=== PATIENT | female | born 1955 | race Asian ===

== ENCOUNTER 2019-02-15 12:33 | Emergency (ER) | payer MEDICARE, BC ==
[~2019-02-15] VITALS: Ht 162.6 cm; Wt 74.8 kg
[2019-02-15 14:53] VITALS: BP 137/96
--- NOTE | 2019-02-15 14:54 | NUR ---
For discharge- [facility] given verbalized understanding Home ambulatory in stable condition No obvious distress
== END 2019-02-15 15:00 | disposition home or self-care (01) ==
LOC: ER 12:41
DX: D17.24 Benign lipomatous neoplasm of skin and subcutaneous tissue of left leg (principal); M25.562 Pain in left knee; Z88.6 Allergy status to analgesic agent; Z88.5 Allergy status to narcotic agent
CPT/HCPCS: 93971-TC